=== PATIENT | female | born 1965 | race Caucasian/White ===

== ENCOUNTER → 2021-07-08 | Day surgery (SDC) | payer BC ==
[~2021-07-08] MED LIST: BUSPIRONE HCL5 MG PO; CRESTOR40 MG PO; CYMBALTA60 MG PO; DEXCOM G61 EAC1 MC; HYDROCHLOROTHIA25 MG PO; LEVOTHYROXINE88 MC1 PO; LISINOPRIL10 MG PO; LYRICA75 MG PO; MOBIC7.5 MG PO; NOVOLOG 10100 UNITS1 INJ; ONDANSETRON HCL4 MG PO; PROTONIX40 MG PO; TRAZODONE HCL100 MG PO; VAZALORE81 MG PO
== END | disposition home or self-care (01) ==
LOC: OR 06:04
DX: Z12.11 Encounter for screening for malignant neoplasm of colon (principal); D12.3 Benign neoplasm of transverse colon; K64.0 First degree hemorrhoids; K59.09 Other constipation; E11.9 Type 2 diabetes mellitus without complications; I10 Essential (primary) hypertension; E78.00 Pure hypercholesterolemia, unspecified; F41.9 Anxiety disorder, unspecified; E66.9 Obesity, unspecified; Z68.33 Body mass index [BMI] 33.0-33.9, adult; Z79.82 Long term (current) use of aspirin; Z79.4 Long term (current) use of insulin; Z79.899 Other long term (current) drug therapy
CPT/HCPCS: 82962; J2704; J7040

== ENCOUNTER 2021-08-15 23:01 | Inpatient (IN) | payer BC ==
[~2021-08-15] VITALS: Ht 167.6 cm; Wt 88.9 kg
[~2021-08-15 23:01] MED LIST changes: -CYMBALTA60 MG PO
[2021-08-16 03:08] LABS: HEMOGLOBIN 12.7 gm/dl (12.3-15.3); RED BLOOD COUNT 4.38 M/UL (4.00-5.10); WHITE BLOOD COUNT 19.3 K/UL (4.5-11.0)
[2021-08-16 03:31] LABS: BUN/CREATININE RATIO 19 (0-10)
[2021-08-16] MEDS ORDERED: CYMBALTA60 MG PO (07:03)
[2021-08-16] MEDS ORDERED: LEVOTHYROXINE88 MCG PO (08:54)
[2021-08-16] MEDS ORDERED: BACTROBAN OINT22 GM TOP (08:55)
[2021-08-16] MEDS ORDERED: NOVOLOG 10100 UNITS/ SC (08:56)
[2021-08-16] MEDS ORDERED: BUSPIRONE HCL5 MG PO (08:59)
[2021-08-17 02:47] LABS: HEMOGLOBIN 11.1 gm/dl (12.3-15.3); WHITE BLOOD COUNT 14.7 K/UL (4.5-11.0)
[2021-08-17 02:55] LABS: BUN/CREATININE RATIO 15 (0-10)
[2021-08-17 02:56] LABS: RED BLOOD COUNT 3.89 M/UL (4.00-5.10)
[2021-08-18 04:52] LABS: HEMOGLOBIN 11.1 gm/dl (12.3-15.3); RED BLOOD COUNT 3.91 M/UL (4.00-5.10); WHITE BLOOD COUNT 14.5 K/UL (4.5-11.0)
[2021-08-18 05:28] LABS: BUN/CREATININE RATIO 11 (0-10)
--- NOTE | 2021-08-18 09:00 | NUR ---
WOUND CULTURE OBTAINED FROM RIGHT LOWER BACK CALF AND SENT TO LAB. NEW IV SITE 22 GAUGE TO LEFT AC X 1 STICK PT TOLERATED WELL.
[2021-08-19 03:35] LABS: HEMOGLOBIN 10.2 gm/dl (12.3-15.3); RED BLOOD COUNT 3.6 M/UL (4.00-5.10)
[2021-08-19 04:14] LABS: BUN/CREATININE RATIO 8 (0-10)
[2021-08-19] MEDS ORDERED: BACTRIM DS TAB1 EACH PO (09:45)
[2021-08-19] MEDS ORDERED: KEFLEX CAP 250250 MG PO (09:46)
== END 2021-08-19 12:02 | disposition home or self-care (01) | DRG 603 ==
LOC: ER1 23:01 → CDU 08-16 04:22 → M/S 08-16 04:22
PROVIDERS: Physician Assistant; Physician Assistant Medical; ADMIT Internal Medicine
DX: L03.115 Cellulitis of right lower limb (principal); E87.1 Hypo-osmolality and hyponatremia; Z20.822 Contact with and (suspected) exposure to COVID-19; E78.5 Hyperlipidemia, unspecified; E11.621 Type 2 diabetes mellitus with foot ulcer; Z96.41 Presence of insulin pump (external) (internal); K21.9 Gastro-esophageal reflux disease without esophagitis; F41.1 Generalized anxiety disorder; E11.40 Type 2 diabetes mellitus with diabetic neuropathy, unspecified; G47.00 Insomnia, unspecified; E86.0 Dehydration; L97.529 Non-pressure chronic ulcer of other part of left foot with unspecified severity; L97.519 Non-pressure chronic ulcer of other part of right foot with unspecified severity; E03.9 Hypothyroidism, unspecified; Z79.4 Long term (current) use of insulin; Z98.891 History of uterine scar from previous surgery; Z98.890 Other specified postprocedural states
CPT/HCPCS: 36415; 73590; 73701; 80048; 80053; 80202; 82009; 82962; 83605; 85025; 85027; 87040; 87070; 87077; 87186; 87205; 93971; 96374; 96375; 99285; J1650; J2185; J2405; J2543; J3370; J7030; J7070; Q9967; U0002